=== PATIENT | male | born 1990 | race African-American/Black ===

== ENCOUNTER 2018-10-27 16:40 | Emergency (ER) | payer SELFPAY ==
[~2018-10-27] VITALS: Ht 180.3 cm; Wt 68.2 kg
[2018-10-27] MEDS ORDERED: MULT-1285 PO (16:46)
[2018-10-27] MEDS ORDERED: METOCLOPRAMIDE HCL 10 MG TABLET PO ONE (19:00)
[2018-10-27 20:42] VITALS: BP 124/73
== END 2018-10-27 20:45 | disposition home or self-care (01) ==
LOC: EMS 16:42
DX: R51 Headache (principal); F12.90 Cannabis use, unspecified, uncomplicated; F17.210 Nicotine dependence, cigarettes, uncomplicated
CPT/HCPCS: 70450